=== PATIENT | male | born 1975 | race Native Hawaiian/Other Pacific Islander ===

== ENCOUNTER 2019-03-17 22:44 | Inpatient (IN) | payer OTHER ==
[~2019-03-17] VITALS: Ht 188 cm; Wt 134.5 kg
[2019-03-17 22:58] VITALS: BP 168/94; TEMP 103.3
[2019-03-18 00:01] LABS: PLATELET COUNT 133 K/uL (142-355)
--- NOTE | 2019-03-18 00:33 | NUR ---
PT ARRIVED FROM ER VIA W/C FOR ADMISSION TO RM [id number],IV SITE TO [employer] INFILTRATED AT PRESENT. PT ADMITTED WITH DX. OF PNUEMONIA.iv site obtained to R hand with 22 guage X 2 ATTEMPTS. IVF'S INFUSING OF NS @125.TELEMETRY PLACED ON PT AT PRESENT.FAMILY AT BEDSIDE NAD NOTED, RESP EVEN AND UNLABORD AT THIS TIME.
[2019-03-18 00:50] VITALS: BP 168/94; Ht 188 cm; Wt 134.5 kg
[2019-03-18 04:00] VITALS: BP 94/54; TEMP 98.4
--- NOTE | 2019-03-18 07:36 | NUR ---
Patient was admitted with pneumonia, YAÑEZ, fever, and is on a Regular diet and is 6'2" and IBW 190+/-10% and is 162% IBW and BMI 39.5 and is class II obesity. Kcal for ibw x 30 = 2590 and x 25 2159 kcal/day and naralkx11 to 112 grams a day and fluids for weight x 25 2159 and x 30 =2590 ml/day. On a Regular diet. PMH of HTN. See abnormal labs depressed RBC, Hgb and Hc. gl and lcatic acid elevated. Recommend: 1-Increase fluids as tolerated. 2- NCS SHABBIR Hihg Fiber
[2019-03-18 08:17] VITALS: BP 107/60; TEMP 98.4
--- NOTE | 2019-03-18 10:10 | NUR ---
PATIENT CONTINUES TO LEAVE HIS ROOM GO TO HIS TRUCK. HE LEFT HIS ROOM AT 0700 AND THEN CAME BACK AT 0720. PATIENT AGAIN LEFT HIS ROOM FOR 30 MINUTES AT 1010. PATIENT IS NOW COMPLAINING OF A MIGRAINE DOCTOR NOTIFIED. NON- PHARMACOLOGICAL PAIN MEASURES GIVEN. WILL CONTIUNE TO MONITOR.
[2019-03-18 12:00] VITALS: BP 118/60; TEMP 98.4
[2019-03-18 13:11] LABS: PLATELET COUNT 132 K/uL (142-355)
[2019-03-18 13:16] LABS: POTASSIUM 4.1 mmol/L (3.6-5.2)
[2019-03-18 16:06] VITALS: BP 131/67; TEMP 97.6
--- NOTE | 2019-03-18 19:25 | NUR ---
PATIENT FAMILY STAITED THEY WERE BRINGING HOMEMEDS TO THE ROOM. I TOLD THEM THERE WAS A PROCESS IN PLACE THEY HAD TO GO THROUGH FOR THAT. PATIENT SEEMED VERY GROGGIE AND LETHARGIC. I HAVE CONCERNS THAT HE MAY BE TAKING HOME MEDS OR OTHERWISE.
--- NOTE | 2019-03-18 19:30 | NUR ---
THE PATIENTS PHARMACY IS [facility] IN [facility]. I GAVE THE FAMILY OUR FAX SHAN TO GET US HIS HOMEMED INFORMATION
[2019-03-18 20:00] VITALS: BP 117/66; TEMP 98.3
[2019-03-19] VITALS (7 sets, daily range): BP systolic 97–139; BP diastolic 40–74; TEMP 97.9–98.3
--- NOTE | 2019-03-19 03:56 | NUR ---
NURSING STAFF OBSERVED PT AND FAMILY MEMBERS WALKING BY NURSES STATION TOWARD SMOKING AREA AT 0356. AT 0413 NULATO K PHOTOGRAPHIC PROCESSOR NOTIFIED NURSING STAFF THAT PT AND FAMILY MEMBERS WERE AT STORE AND PT HAD IV (SALINE LOCK) IN HAND.NURSING STAFF DID ROOM CHECK AND PT WAS NOT IN ROOM,AT 0414 FAMILY MEMBER ENTERED ROOM AND STATED PT WAS RIGHT BEHIND HER, PT WAS LOCATED IN TRUCK IN [place],NURSING STAFF WENT TO ER AND NOTIFIED ER PHYSICIAN OF PT'S ACTIONS AND PHYSICIAN INSTRUCTED STAFF TO TELL PT HE IS TO REMAIN IN ROOM AND NOT LEAVE THE HOSPITAL CAMPUS AT ANY TIME OR HE IS TO SIGN AN AMA. PT VERBALIZED UNDERSTANDING. PT RETURNED TO ROOM AT 0426, AND WAS INSTRUCTED, NOT TO LEAVE HOSPITAL WITHOUT NOTIFYING NURSING STAFF. PT EDUCATED REGARDING SIGNING AMA, BUT HE REFUSED AND STATED I WANT TO STAY IN THE HOSPITAL.
[2019-03-19 04:23] LABS: PLATELET COUNT 148 K/uL (142-355)
[2019-03-19 04:28] LABS: POTASSIUM 4.3 mmol/L (3.6-5.2)
[2019-03-19] MEDS ORDERED: CLON0.5T36 PO (11:45)
[2019-03-19] MEDS ORDERED: BUPR8SUB2 SL (11:47)
[2019-03-19] MEDS ORDERED: NEURONTIN800 MG PO (11:48)
[2019-03-19] MEDS ORDERED: AMLODIPINE BESYLATE PO (11:49)
[2019-03-19] MEDS ORDERED: DIVALPROEX500 MG PO (11:50)
[2019-03-19] MEDS ORDERED: MAXALT10 MG PO (11:51)
[2019-03-19] MEDS ORDERED: OMEPRAZOLE40 MG PO (11:52)
[2019-03-19] MEDS ORDERED: FLUO10CA2 PO (15:16)
[2019-03-20] VITALS: BP 148/76; TEMP 98.1
[2019-03-20 04:00] VITALS: BP 113/48; TEMP 97.9
[2019-03-20 07:11] LABS: PLATELET COUNT 174 K/uL (142-355)
[2019-03-20 07:29] LABS: POTASSIUM 4.3 mmol/L (3.6-5.2)
[2019-03-20 08:00] VITALS: BP 127/67; TEMP 98.1
--- NOTE | 2019-03-20 11:34 | NUR ---
PATIENT GIVEN DISCHARGE INSTRUCTIONS WITH VERBAL UNDERSTANDING NOTED. PATIENT EDUCATED ON TAKING ALL MEDICAITONS PRECRIBED AND FOLLOW UP WITH ON FRIDAY AND SCHEDULE AN APPOINTMENT. IV DISCONTINUED TO THE RIGHT LEFT HAND WITH TIP INTACT. PATIENT ALSO EDUCATED IF HE HAD SYMPTOMS SUCH SEVERE SHORTNESS OF BREATH, COUGHING THAT INCREASES IN FREQUENCY AND DOES NOT SUBSIDE AND FEVER REPORT TO YOUR NEAREST ER. PATIENT VOICED UNDERSTANDING NOTED.
== END 2019-03-20 12:00 | disposition home or self-care (01) | DRG 871 ==
LOC: ED 22:44 → MED/SURG 23:55
PROVIDERS: Emergency Medicine; Family Medicine; ADMIT Internal Medicine
DX: A41.89 Other specified sepsis (principal); J18.8 Other pneumonia, unspecified organism; N39.0 Urinary tract infection, site not specified; I10 Essential (primary) hypertension; R11.2 Nausea with vomiting, unspecified; G43.809 Other migraine, not intractable, without status migrainosus; Z79.01 Long term (current) use of anticoagulants; Z91.14 Patient's other noncompliance with medication regimen; F19.10 Other psychoactive substance abuse, uncomplicated; Z72.0 Tobacco use
CPT/HCPCS: 36415; 80048; 80053; 80307; 81000; 83605; 85027; 87040; 87502; 87651; 87899; 94640; 94664; 94760; 96360; 96361; 96365; 96372; 99284; J0456; J0696; J1650; J1885; J2175; J2405; J2550; J2920

== ENCOUNTER 2019-04-12 14:41 | Outpatient (CLI) | payer OTHER ==
[~2019-04-12 14:41] MED LIST: AMLODIPINE BESYLATE PO; BUPR8SUB2 SL; CLON0.5T36 PO; DIVALPROEX500 MG PO; FLUO10CA2 PO; MAXALT10 MG PO; NEURONTIN800 MG PO; OMEPRAZOLE40 MG PO
== END 2019-04-12 21:11 | disposition home or self-care (01) ==
LOC: LAB 14:41
DX: E29.1 Testicular hypofunction (principal); E63.9 Nutritional deficiency, unspecified; R50.9 Fever, unspecified; M25.50 Pain in unspecified joint
CPT/HCPCS: 82306; 82607; 82746; 84402; 84403; 85651; 86140; 86225; 86235; 86430; 86431